=== PATIENT | male | born 1970 | race Caucasian/White ===

== ENCOUNTER 2018-05-31 01:14 | Emergency (ER) | payer BC ==
[~2018-05-31] VITALS: Ht 170.2 cm; Wt 77.3 kg
[2018-05-31 04:26] VITALS: BP 132/75
== END 2018-05-31 04:28 | disposition home or self-care (01) ==
LOC: ER 01:14
DX: R42 Dizziness and giddiness (principal); E11.9 Type 2 diabetes mellitus without complications; I10 Essential (primary) hypertension
CPT/HCPCS: 93005; 99283; Z7610